=== PATIENT | male | born 1950 | race African-American/Black ===

== ENCOUNTER 2017-10-22 19:55 | Emergency (ER) | payer OTHER ==
[~2017-10-22] VITALS: Ht 165.1 cm; Wt 99.8 kg
--- NOTE | 2017-10-22 21:00 | NUR ---
URINE SPECIMEN OBTAINED BY TRIAGE NURSE AND SENT TO THE LAB.
--- NOTE | 2017-10-22 22:12 | NUR ---
PT AMBULATORY TO ER BED 6. BBSELF C/C HEARING VOICES TO HURT HIMSELF, NO PLAN. +SI, -HI. PT PLACED ON WIRER MAINTENANCE. VSS/RESP EVEN UNLABORED/NAD NOTED/SKIN WARM AND DRY/AFEBRILE/DENIES N-V-D/AOX4. AWAITNG MD ANTON.
--- NOTE | 2017-10-22 22:14 | NUR ---
LAB AT BEDSIDE FOR DRAW.
[2017-10-22 22:38] LABS: BASOPHILS # (AUTO) 0.1 /CMM (0.0-0.2); BASOPHILS % (AUTO) 0.5 % (0.0-2.0); EOSINOPHILS % (AUTO) 2.3 % (0.0-6.0); HEMATOCRIT 49 % (39-51); HEMOGLOBIN 15.9 g/dL (13.5-17.5); LYMPHOCYTES # (AUTO) 3.5 /CMM (0.8-4.8); LYMPHOCYTES % (AUTO) 31.2 % (20.0-44.0); MEAN CORPUSCULAR HEMOGLOBIN 31 PG (26.0-33.0); MEAN CORPUSCULAR HGB CONC 32 g/dl (31.0-36.0); MEAN CORPUSCULAR VOLUME 95 fL (80-96); MONOCYTES # (AUTO) 0.5 /CMM (0.1-1.30); MONOCYTES % (AUTO) 4.4 % (2.0-12.0); NEUTROPHILS # (AUTO) 6.9 /CMM (1.8-8.9); NEUTROPHILS % (AUTO) 61.6 % (43.0-81.0); PLATELET COUNT (AUTO) 175 /CMM (150-450); RDW COEFFICIENT OF VARIATION 14.2 (11.5-15.0); RED BLOOD CELL COUNT(AUTO) 5.18 MIL/uL (4.5-6.0); WHITE BLOOD COUNT (AUTO) 11.2 K/uL (4.3-11.0)
[2017-10-22 22:42] LABS: APPEARANCE,URINE CLEAR (CLEAR); BILIRUBIN,URINE NEGATIVE (NEGATIVE); BLOOD, URINE NEGATIVE Ery/uL (NEGATIVE); COLOR,URINE YELLOW (YELLOW); KETONES,URINE NEGATIVE (NEGATIVE); LEUKOCYTE ESTERASE ,URINE NEGATIVE (NEGATIVE); NITRITE, URINE NEGATIVE (NEGATIVE); PH,URINE 5.5 (5.0-8.0); PROTEIN,URINE NEGATIVE (NEGATIVE); UGLUCOSE TRACE mg/dL (NEGATIVE); UROBILINOGEN,URINE 0.2 EU/dL (0.2)
[2017-10-22 22:53] LABS: CALCIUM, SERUM 8.7 mg/dL (8.5-10.1); CREATININE 1.1 mg/dL (0.6-1.3); POTASSIUM 3.1 mmol/L (3.5-5.1)
[2017-10-22 22:59] LABS: ALBUMIN 3.2 g/dL (3.4-5.0); BILIRUBIN,DIRECT 0.1 mg/dL (0.0-0.2); BILIRUBIN,TOTAL 0.3 mg/dL (0.2-1.0); SALICYLATE 3.3 mg/dL (2.8-20.0); TOTAL PROTEIN, SERUM 7.2 g/dL (6.4-8.2)
[2017-10-22 23:05] LABS: BACTERIA,URINE None seen /HPF (None Seen); RBC,URINE NONE SEEN /HPF (0-2); SQUAMOUS EPITHELIAL CELL,UR Rare /HPF (None Seen); WBC,URINE 0-2 /HPF (0-3)
[2017-10-22] MEDS ORDERED: POTASSIUM CHLORIDE 20 MEQ TAB.PRT.SR PO ONE ×2 (23:30→23:32)
--- NOTE | 2017-10-23 00:46 | NUR ---
PT RESTING QUIETLY, AROUSES EASILY TO VOICE. RN TO CONTINUE MONITORING PT PROVIDING SAFETY/COMFORT MEASURES.
--- NOTE | 2017-10-23 01:00 | NUR ---
ART AT BEDSIDE FOR EVAL.
--- NOTE | 2017-10-23 02:46 | NUR ---
PT RESTING QUIETLY, AROUSES EASILY TO VOICE. RN TO CONTINUE MONITORING PT PROVIDING SAFETY/COMFORT MEASURES.
--- NOTE | 2017-10-23 04:16 | NUR ---
PT RESTING QUIETLY, AROUSES EASILY TO VOICE. RN TO CONTINUE MONITORING PT PROVIDING SAFETY/COMFORT MEASURES.
--- NOTE | 2017-10-23 06:25 | NUR ---
LAB AT BEDSIDE FOR DRAW.
[2017-10-23 06:41] LABS: CALCIUM, SERUM 8.6 mg/dL (8.5-10.1); CREATININE 1.1 mg/dL (0.6-1.3); POTASSIUM 4.3 mmol/L (3.5-5.1)
--- NOTE | 2017-10-23 07:08 | NUR ---
ENDORSED TO CORY GRULLON FOR MANDO.
--- NOTE | 2017-10-23 07:27 | NUR ---
phone # to give report to [phone]
--- NOTE | 2017-10-23 10:17 | NUR ---
REPORT GIVEN TO CORY SMITH FOR [facility]O GOING TO [facility].
--- NOTE | 2017-10-23 10:24 | NUR ---
TRANSPORT CALLED [phone] ETA 30 PER [facility] TRIP NUMBER [id number]
[2017-10-23 11:09] VITALS: BP 138/99
--- NOTE | 2017-10-23 11:10 | NUR ---
Patient discharged to [facility] going to [facility] in stable condition. Written and verbal after care instructions given. Patient verbalizes understanding of instruction.
== END 2017-10-23 11:11 ==
LOC: ER 19:56
DX: R45.851 Suicidal ideations (principal); J45.909 Unspecified asthma, uncomplicated; E11.9 Type 2 diabetes mellitus without complications
CPT/HCPCS: 36415 ×2; 80048 ×2; 80076; 80305; 80329; 81001; 85025; 99285; A4606; G0480 ×2; Z7610; 81000-TC